=== PATIENT | male | born 1950 | race African-American/Black ===

== ENCOUNTER 2020-02-01 08:40 | Outpatient (CLI) | payer MEDICARE, MEDICAID | END 2020-02-01 23:59 | disposition home or self-care (01) | LOC: WOU 08:40 | PROVIDERS: ATTEND Podiatrist Foot & Ankle Surgery | DX: M21.372 Foot drop, left foot (principal); M21.371 Foot drop, right foot; M20.42 Other hammer toe(s) (acquired), left foot; M20.41 Other hammer toe(s) (acquired), right foot; L84 Corns and callosities; B35.1 Tinea unguium; B35.3 Tinea pedis; M79.671 Pain in right foot; Z79.82 Long term (current) use of aspirin; Z79.899 Other long term (current) drug therapy | CPT/HCPCS: G0463 ==

== ENCOUNTER 2023-03-02 23:10 | Emergency (ER) | payer MEDICARE, OTHER ==
[~2023-03-02] VITALS: Ht 185.4 cm; Wt 77.1 kg
[2023-03-03] MEDS ORDERED: AMOXICILLIN TRIHYDRATE 250 MG CAPSULE ONE (01:01)
[2023-03-03] MEDS: AMOXICILLIN TRIHYDRATE 500 MG CAPSULE PO ONE (01:16)
[2023-03-03 06:23] VITALS: BP 119/66; TEMP 97.5; O2SAT 97
== END 2023-03-03 06:23 | disposition home or self-care (01) ==
LOC: ER 23:18
DX: T83.091A Other mechanical complication of indwelling urethral catheter, initial encounter (principal); R10.2 Pelvic and perineal pain